=== PATIENT | female | born 1975 | race African-American/Black ===

== ENCOUNTER → 2017-06-06 | Outpatient (CLI) | payer MEDICAID ==
[~2017-06-06] VITALS: Ht 167.6 cm; Wt 92.5 kg
[~2017-06-06] MED LIST: HYDROCODONE/ACETAMINOPHEN 5/325MG TABLET PO NR
[2017-06-06 10:04] LABS: GLUCOSE CSF 59 mg/dL (41-75)
[2017-06-11 15:11] LABS: MYELIN BASIC PROTEIN CSF 2.2 ng/mL (0.0-1.2)
== END | disposition home or self-care (01) ==
LOC: ANGIO 07:45
PROVIDERS: ATTEND Psychiatry & Neurology Neurology
DX: G35 Multiple sclerosis (principal)
CPT/HCPCS: 62270; 77003; 82040; 82042; 82784; 82945; 83873; 83916; 84157; 89050